=== PATIENT | male | born 1970 | race Caucasian/White ===

== ENCOUNTER → 2017-01-10 | Outpatient (CLI) | payer OTHER | LOC: KOH-I 09:47 | DX: M25.511 Pain in right shoulder (principal) | CPT/HCPCS: 73030; 73130 ==

== ENCOUNTER → 2021-05-30 | Outpatient (CLI) | payer BC | LOC: KOH-I 11:47 | DX: M79.642 Pain in left hand (principal); M79.641 Pain in right hand; M79.672 Pain in left foot; M79.671 Pain in right foot; R53.82 Chronic fatigue, unspecified; M79.10 Myalgia, unspecified site; M13.0 Polyarthritis, unspecified; M06.09 Rheumatoid arthritis without rheumatoid factor, multiple sites | CPT/HCPCS: 73130; 73630 ==

== ENCOUNTER → 2022-01-12 | Outpatient (CLI) | payer BC | LOC: KOH-I 14:11 | DX: M25.561 Pain in right knee (principal); M25.562 Pain in left knee; M54.40 Lumbago with sciatica, unspecified side; M47.816 Spondylosis without myelopathy or radiculopathy, lumbar region | CPT/HCPCS: 72100; 73502; 73562 ==